=== PATIENT | male | born 1960 | race American Indian/Alaskan Native ===

== ENCOUNTER 2016-07-25 19:11 | Emergency (ER) | payer MEDICAID ==
[2016-07-25] MEDS ORDERED: TYLENOL PO ONE (19:33)
[2016-07-26] MEDS ORDERED: TORADOL ONE (00:58)
[2016-07-26] MEDS ORDERED: TORADOL IM ONE (00:59)
--- NOTE | 2016-07-26 02:08 | Emergency Department Report ---
Chief Complaint: Fall Stated Complaint: FALL Time Seen by Provider: 07/26/16 01:32 - HPI History of Present Illness: 55-year-old male presents today with dizziness and floaters every time he stands up from a sitting position causing him to fall and lose consciousness. Patient states this has been going on for 3-4 weeks. Denies head injury. Complaining of right hip pain post fall yesterday. Denies fever, chills, nausea , vomiting, chest pain, shortness of breath, abdominal pain. - ROS Review of Systems: Per HPI - Exam Vital Signs: Vital Signs 07/25/16 07/26/16 19:26 00:27 Temperature 98.5 F 98.4 F Pulse Rate 86 82 Respiratory 18 18 Rate Blood Pressure 106/60 Blood Pressure 100/60 [Right] O2 Sat by Pulse 97 96 Oximetry Physical Exam: General: A 55-year-old male in no acute distress. Well-developed, well- nourished. CV: Regular rate and rhythm. Lungs: Clear to auscultation bilaterally. MSE screening note: Focused history and physical exam performed. Due to findings the following was ordered: ED Disposition for MSE Condition: Stable
[2016-07-26 02:31] LABS: Eosinophils % (Auto) 1.8 % (0.0-4.3); Hematocrit 28.2 % (35.5-45.6); Hemoglobin 9.8 gm/dl (11.8-15.2); Mean Corpuscular HGB Conc 35 % (32-34); Mean Corpuscular Hemoglobin 28 pg (28-32); Mean Corpuscular Volume 82 fl (84-94); Platelet Count 387 K/mm3 (140-440); Red Blood Count 3.46 M/mm3 (3.65-5.03); Red Cell Distribution Width 13.5 % (13.2-15.2); White Blood Count 7.8 K/mm3 (4.5-11.0)
[2016-07-26 02:42] LABS: Urine Drugs of Abuse Note Disclamer
[2016-07-26 02:49] LABS: BUN/Creatinine Ratio 10.83; Blood Urea Nitrogen 13 mg/dL (9-20); Calcium 8.4 mg/dL (8.4-10.2); Carbon Dioxide 25 mmol/L (22-30); Chloride 95.6 mmol/L (98-107); Glucose 102 mg/dL (75-100); Potassium 3.9 mmol/L (3.6-5.0); Sodium 130 mmol/L (137-145)
[2016-07-26 02:49] LABS: Bilirubin,Urine NEG (Negative); Blood,Urine SM (Negative); Ketones,Urine NEG (Negative); Leukocyte Esterase,Urine NEG (Negative); Mucus,Urine FEW /HPF; Nitrite,Urine NEG (Negative); Protein,Urine <15 mg/dL mg/dL (Negative); Urobilinogen,Urine < 2.0 mg/dL (<2.0)
[2016-07-26 02:53] LABS: Anion Gap 13 mmol/L
[2016-07-26] MEDS ORDERED: ZOFRAN IV ONE (03:06)
[2016-07-26] MEDS ORDERED: NORCO 5/325 PO ONE (03:06)
[2016-07-26] MEDS ORDERED: NACL 0.9% 1000 ML 1,000 ML IV ONE (03:06)
--- NOTE | 2016-07-26 03:55 | Cat Scan Report ---
FINAL REPORT EXAM: CT HEAD/BRAIN WO CON HISTORY: LIGHTHEADED, SYNCOPE TECHNIQUE: CT scan of the brain without IV contrast. PRIORS: None FINDINGS: Mild patchy areas of low density in the periventricular and subcortical white matter are nonspecific, but may relate to chronic small vessel ischemic change. Brain volume is normal for age. No hemorrhage, mass, mass effect, or midline shift. Normal basal cisterns. No pathologic extra-axial fluid collection. No evidence of acute infarct. No skull fracture. There is a 6 x 8.5 mm lucency in the right petrous apex, nonspecific, but can be seen in a cholesterol granuloma. IMPRESSION: 1. No acute intracranial finding. Suspect chronic ischemic changes. 2. Lucency in the right petrous apex is nonspecific, but can be seen in cholesterol granuloma. Recommend comparison to prior studies to document stability. If no prior studies are available, recommend follow-up MRI temporal bones with gadolinium.
--- NOTE | 2016-07-26 04:20 | Emergency Department Report ---
ED Dizziness HPI - General Chief Complaint: Fall Stated Complaint: FALL Time Seen by Provider: 07/26/16 01:32 Source: patient, old records reviewed Mode of arrival: Wheelchair Limitations: No Limitations - History of Present Illness Initial Comments: 55-year-old male with a past rectal history of HIV, schizophrenia, hypertension , COPD, and chronic lower back pain presents to the hospital complaining of dizziness and syncopal episodes. Patient states last several weeks he is pitting lightheadedness and seeing spots with standing and ambulation. Yesterday patient fell striking his right hip and complains of aching 10/10 right hip pain with palpation and movement. Patient states intermittent syncopal episodes as well. Denies headache, neck pain, chest pain, shortness of breath, nausea, vomiting, diarrhea, melena, or hematochezia. States he is eating and drinking appropriate. He does not recall his last CD4 count is not currently on medications. patient states he has a chronic cough Previous medical records reviewed. 08/06/2015 CD4 count 117. Patient is a history of noncompliance as per medical record. - Related Data Home Medications Medication Instructions Recorded Confirmed Last Taken Benztropine [Cogentin] 0.5 mg PO BID 06/17/16 06/17/16 06/17/16 Haloperidol [Haldol] 5 mg PO BID 06/17/16 06/17/16 06/17/16 Oxycodone HCl/Acetaminophen 1 each PO Q6HR PRN 06/17/16 06/17/16 06/17/16 [Percocet 10/325 mg] traZODone [Desyrel] 100 mg PO QHS 06/17/16 06/17/16 06/17/16 Previous Rx's Medication Instructions Recorded Last Taken Type Nicotine [Habitrol] 14 mg TD QDAY #30 patch 04/12/15 Unknown Rx HYDROcodone/APAP 5-325 [[place] 1 each PO Q6HR PRN #20 tablet 07/26/16 Unknown Rx 5/325] Ibuprofen [Motrin] 600 mg PO Q8H PRN #30 tablet 07/26/16 Unknown Rx Allergies Allergy/AdvReac Type Severity Reaction Status Date / Time No Known Allergies Allergy Verified 04/21/16 14:15 ED Review of Systems ROS: Stated complaint: FALL Other details as noted in HPI Comment: All other systems reviewed and negative Other: Constitutional: No fevers chills Eyes: No eye pain visual changes ENT: No ear pain or throat pain Neck: Denies pain Respiratory: Denies cough wheezing shortness of breath Cardiovascular: Denies chest pain, palpitations GI: Denies abdominal pain, nausea, vomiting, diarrhea : Denies dysuria, urinary frequency, or urgency Musculoskeletal: as per hpi Skin: Denies rash, lesions, erythema Neurologic: Denies headache, numbness, weakness Psychiatric: Denies suicidal ideation, hallucinations ED Past Medical Hx - Past Medical History Previous Medical History?: Yes Hx Hypertension: Yes Hx Congestive Heart Failure: No Hx Diabetes: No Hx Renal Disease: No Hx Psychiatric Treatment: Yes (OP and while incarcerated; SCHIZOPHRENIA) Hx Asthma: No Hx COPD: Yes Hx HIV: Yes Additional medical history: pancreatitis. Chronic low back pain - Surgical History Past Surgical History?: Yes Additional Surgical History: L arm surgery, Right arm surgery - Social History Smoking Status: Heavy Tobacco Smoker Substance Use Type: None - Medications Home Medications: Home Medications Medication Instructions Recorded Confirmed Last Taken Type Nicotine [Habitrol] 14 mg TD QDAY #30 patch 04/12/15 07/28/15 Unknown Rx Benztropine [Cogentin] 0.5 mg PO BID 06/17/16 06/17/16 06/17/16 History Haloperidol [Haldol] 5 mg PO BID 06/17/16 06/17/16 06/17/16 History Oxycodone HCl/Acetaminophen 1 each PO Q6HR PRN 06/17/16 06/17/16 06/17/16 History [Percocet 10/325 mg] traZODone [Desyrel] 100 mg PO QHS 06/17/16 06/17/16 06/17/16 History HYDROcodone/APAP 5-325 [[place] 1 each PO Q6HR PRN #20 tablet 07/26/16 Unknown Rx 5/325] Ibuprofen [Motrin] 600 mg PO Q8H PRN #30 tablet 07/26/16 Unknown Rx ED Physical Exam - General Limitations: No Limitations - Other Other exam information: General: No limitations, patient is alert in no acute distress Head exam: Atraumatic, normocephalic Eyes exam: Normal appearance, pupils equal reactive to light, extraocular movements intact ENT: Moist mucous membrane Neck exam: Normal inspection, full range of motion, no meningismus nontender Respiratory exam: Clear to auscultation bilateral, no wheezes, rales, crackles Cardiovascular: Normal rate and rhythm, normal heart sounds Abdomen: Soft, nondistended, and nontender, with normal bowel sounds, no rebound, or guarding Extremity: Full range of motion normal inspection no deformity, right lateral hip tenderness Back: Normal Inspection, full range of motion Neurologic: Alert, oriented x3, cranial nerves intact, no motor or sensory deficit, [id number] function intact Psychiatric: normal affect, normal mood Skin: Warm, dry, intact ED Course Vital Signs 07/25/16 07/26/16 07/26/16 19:26 00:27 05:22 Temperature 98.5 F 98.4 F Pulse Rate 86 82 74 Respiratory 18 18 20 Rate Blood Pressure 106/60 Blood Pressure 100/60 93/67 [Right] O2 Sat by Pulse 97 96 97 Oximetry 07/26/16 05:41 Temperature Pulse Rate Respiratory Rate Blood Pressure Blood Pressure 90/63 [Right] O2 Sat by Pulse Oximetry - Reevaluation(s) Reevaluation #1: 07/26/16 04:26 Positive increased heart rate standing was stable systolic pressure. Normal saline given, [place], and Zofran ordered by ordered by me. Toradol Tylenol given prior to my evaluation 07/26/16 04:26 07/26/16 04:28 ED Medical Decision Making - Lab Data Result diagrams: 07/26/16 02:17 07/26/16 02:17 Lab Results 07/26/16 07/26/16 07/26/16 Range/Units 02:17 02:17 02:17 WBC 7.8 (4.5-11.0) K/mm3 RBC 3.46 L (3.65-5.03) M/mm3 Hgb 9.8 L (11.8-15.2) gm/dl Hct 28.2 L (35.5-45.6) % MCV 82 L (84-94) fl MCH 28 (28-32) pg MCHC 35 H (32-34) % RDW 13.5 (13.2-15.2) % Plt Count 387 (140-440) K/mm3 Lymph % (Auto) 38.5 H (13.4-35.0) % [place] % (Auto) 10.8 H (0.0-7.3) % Eos % (Auto) 1.8 (0.0-4.3) % Baso % (Auto) 1.0 (0.0-1.8) % Lymph # 3.0 (1.2-5.4) K/mm3 [place] # 0.8 (0.0-0.8) K/mm3 Eos # 0.1 (0.0-0.4) K/mm3 Baso # 0.1 (0.0-0.1) K/mm3 Seg Neutrophils % 47.9 (40.0-70.0) % Seg Neutrophils # 3.7 (1.8-7.7) K/mm3 Sodium 130 L (137-145) mmol/L Potassium 3.9 (3.6-5.0) mmol/L Chloride 95.6 L (98-107) mmol/L Carbon Dioxide 25 (22-30) mmol/L Anion Gap 13 mmol/L BUN 13 (9-20) mg/dL Creatinine 1.2 (0.8-1.5) mg/dL Estimated GFR > 60 ml/min BUN/Creatinine Ratio 10.83 % Glucose 102 H (75-100) mg/dL Calcium 8.4 (8.4-10.2) mg/dL Magnesium 1.8 (1.7-2.3) mg/dL Troponin T < 0.010 (0.00-0.029) ng/mL Urine Color (Yellow) Urine Turbidity (Clear) Urine pH (5.0-7.0) Ur Specific [place] (1.003-1.030) Urine Protein (Negative) mg/dL Urine Glucose (UA) (Negative) mg/dL Urine Ketones (Negative) mg/dL Urine Blood (Negative) Urine Nitrite (Negative) Urine Bilirubin (Negative) Urine Urobilinogen (<2.0) mg/dL Ur Leukocyte Esterase (Negative) Urine WBC (Auto) (0.0-6.0) /HPF Urine RBC (Auto) (0.0-6.0) /HPF Amorphous Crystals Urine Mucus /HPF Urine Opiates Screen Urine Methadone Screen Ur Barbiturates Screen Ur Phencyclidine Scrn Ur Amphetamines Screen U Benzodiazepines Scrn Urine Cocaine Screen U Marijuana (THC) Screen Drugs of Abuse Note 07/26/16 07/26/16 Range/Units 02:36 02:36 WBC (4.5-11.0) K/mm3 RBC (3.65-5.03) M/mm3 Hgb (11.8-15.2) gm/dl Hct (35.5-45.6) % MCV (84-94) fl MCH (28-32) pg MCHC (32-34) % RDW (13.2-15.2) % Plt Count (140-440) K/mm3 Lymph % (Auto) (13.4-35.0) % [place] % (Auto) (0.0-7.3) % Eos % (Auto) (0.0-4.3) % Baso % (Auto) (0.0-1.8) % Lymph # (1.2-5.4) K/mm3 [place] # (0.0-0.8) K/mm3 Eos # (0.0-0.4) K/mm3 Baso # (0.0-0.1) K/mm3 Seg Neutrophils % (40.0-70.0) % Seg Neutrophils # (1.8-7.7) K/mm3 Sodium (137-145) mmol/L Potassium (3.6-5.0) mmol/L Chloride (98-107) mmol/L Carbon Dioxide (22-30) mmol/L Anion Gap mmol/L BUN (9-20) mg/dL Creatinine (0.8-1.5) mg/dL Estimated GFR ml/min BUN/Creatinine Ratio % Glucose (75-100) mg/dL Calcium (8.4-10.2) mg/dL Magnesium (1.7-2.3) mg/dL Troponin T (0.00-0.029) ng/mL Urine Color Yellow (Yellow) Urine Turbidity Clear (Clear) Urine pH 6.0 (5.0-7.0) Ur Specific [place] 1.009 (1.003-1.030) Urine Protein <15 mg/dl (Negative) mg/dL Urine Glucose (UA) Neg (Negative) mg/dL Urine Ketones Neg (Negative) mg/dL Urine Blood Sm (Negative) Urine Nitrite Neg (Negative) Urine Bilirubin Neg (Negative) Urine Urobilinogen < 2.0 (<2.0) mg/dL Ur Leukocyte Esterase Neg (Negative) Urine WBC (Auto) 4.0 (0.0-6.0) /HPF Urine RBC (Auto) 1.0 (0.0-6.0) /HPF Amorphous Crystals Few Urine Mucus Few /HPF Urine Opiates Screen Presumptive negative Urine Methadone Screen Presumptive negative Ur Barbiturates Screen Presumptive negative Ur Phencyclidine Scrn Presumptive negative Ur Amphetamines Screen Presumptive negative U Benzodiazepines Scrn Presumptive negative Urine Cocaine Screen Presumptive negative U Marijuana (THC) Screen Presumptive negative Drugs of Abuse Note Disclamer - EKG Data -: EKG Interpreted by Me (sinus rhythm [address]-T wave abnormalities) - EKG Data When compared to previous EKG there are: no significant change (04/21/2016) - Radiology Data Radiology results: report reviewed, image reviewed (chest x-ray PA and lateral right lower lobe infiltrate suspect this is chronic based on previous x-rays. Patient admitted for pneumonia JR 2015 right lower quadrant thought to be chronic as per infectious disease at that time.) interpreted by me: r hip xray/pelvis: naf CT head noncontrast: No acute intracranial finding. Suspect chronic ischemic changes. Lucency in the right petrous apex is nonspecific but can be seen in cholesterol granuloma. - Medical Decision Making No acute abnormality or infection identified. Suspect the patient's right lower lobe infiltrate is chronic given previous chest x-ray findings. CT head findings can be followed up as an outpatient. Patient has a history of noncompliance and last CD4 was less than 500 one year ago. Will be given outpatient referral with rashes disease doctor for further workup and evaluation. Patient reports feeling better with ED treatment - Differential Diagnosis dehydration, CVA, anemia, arrhythmia Critical Care Time: No Critical care attestation.: If time is entered above; I have spent that time in minutes in the direct care of this critically ill patient, excluding procedure time. ED Disposition Clinical Impression: Schizophrenia, Lightheaded, Chronic anemia Fall Qualifiers: Encounter type: initial encounter Qualified Code(s): W19.XXXA - Unspecified fall, initial encounter Syncope Qualifiers: Syncope type: unspecified Qualified Code(s): R55 - Syncope and collapse Contusion of right hip Qualifiers: Encounter type: initial encounter Qualified Code(s): S70.01XA - Contusion of right hip, initial encounter Disposition: DISCHARGED TO HOME OR SELFCARE Is pt being admited?: No Does the pt Need Aspirin: No Condition: Stable Instructions: Syncope (ED), Human Immunodeficiency Virus Transmission (ED), Hip Sprain (ED) Additional Instructions: Follow with your primary care doctor, the infectious disease doctor, and a train director doctor provided for further workup and evaluation. You will also need an outpatient MRI for further evaluation of your right petrous apex bone which could be a cholesterol granuloma. Take the medication as prescribed. Use caution when standing up and changing positions. Return if symptoms worsen Prescriptions: HYDROcodone/APAP 5-325 [[place] 5/325] 1 each PO Q6HR PRN #20 tablet PRN Reason: Pain Ibuprofen [Motrin] 600 mg PO Q8H PRN #30 tablet PRN Reason: Pain Referrals: PRIMARY CARE, [Primary Care Provider] - 3-5 Days JOSE ANGEL SOLIZ MD [Staff Physician] - 3-5 Days MEDINA ENCISO MD [Staff Physician] - 3-5 Days Time of Disposition: 05:56
[2016-07-26 06:00] VITALS: BP 99/63
--- NOTE | 2016-07-27 11:10 | XRay Report ---
RIGHT HIP, 2 views: History: Right hip pain. The bony architecture is intact without evidence of fracture or dislocation. No significant soft tissue abnormality is seen. IMPRESSION: Normal right hip.
--- NOTE | 2016-07-27 11:12 | XRay Report ---
ROUTINE CHEST, TWO VIEWS: HISTORY: Cough. The lungs are hyperinflated suggesting emphysematous changes. Infiltrate or atelectasis appears to obscure the lower lobes on the lateral image. This may be within the left lower lobe. I cannot entirely exclude pneumonia. No pleural effusion or pneumothorax. Normal heart size. IMPRESSION: Emphysematous changes. Questionable left lower lobe opacity, correlate for pneumonia.
== END 2016-07-26 06:03 | disposition home or self-care (01) ==
LOC: ED 19:11
DX: S70.01XA Contusion of right hip, initial encounter (principal); R42 Dizziness and giddiness; F20.9 Schizophrenia, unspecified; D64.89 Other specified anemias; W19.XXXA Unspecified fall, initial encounter; Y93.89 Activity, other specified; Y92.89 Other specified places as the place of occurrence of the external cause; Y99.8 Other external cause status; I10 Essential (primary) hypertension; J44.9 Chronic obstructive pulmonary disease, unspecified; Z21 Asymptomatic human immunodeficiency virus [HIV] infection status; G89.29 Other chronic pain; K85.90 Acute pancreatitis without necrosis or infection, unspecified; F17.200 Nicotine dependence, unspecified, uncomplicated
CPT/HCPCS: 36415; 70450; 71020; 73502; 80048; 81001; 83735; 84484; 85025; 93005; 93010; 96361; 96372; 96374; 99285; G0479; J1885; J2405; J7030; 80307

== ENCOUNTER 2016-09-15 15:20 | Emergency (ER) | payer MEDICAID ==
[2016-09-15 15:55] VITALS: BP 103/72
== END 2016-09-15 21:42 | disposition left against medical advice (07) ==
LOC: ED 15:20
DX: K13.70 Unspecified lesions of oral mucosa (principal); Z53.21 Procedure and treatment not carried out due to patient leaving prior to being seen by health care provider

== ENCOUNTER 2016-12-25 18:27 | Emergency (ER) | payer MEDICAID ==
[2016-12-25 19:41] LABS: Basophils % (Auto) 0.6 % (0.0-1.8); Eosinophils % (Auto) 0.4 % (0.0-4.3); Hemoglobin 11.2 gm/dl (11.8-15.2); Mean Corpuscular HGB Conc 34 % (32-34); Mean Corpuscular Hemoglobin 27 pg (28-32); Mean Corpuscular Volume 81 fl (84-94); Platelet Count 264 K/mm3 (140-440); Red Blood Count 4.07 M/mm3 (3.65-5.03); White Blood Count 12.2 K/mm3 (4.5-11.0)
[2016-12-25 19:53] LABS: Anion Gap 20 mmol/L; Blood Urea Nitrogen 15 mg/dL (9-20); Calcium 8.9 mg/dL (8.4-10.2); Carbon Dioxide 21 mmol/L (22-30); Chloride 97.5 mmol/L (98-107); Glucose 77 mg/dL (75-100); Potassium 4.5 mmol/L (3.6-5.0); Sodium 134 mmol/L (137-145)
[2016-12-25 20:44] LABS: Urine Drugs of Abuse Note Disclamer
[2016-12-25 21:11] LABS: Bacteria,Urine 1+ /HPF (Negative); Bilirubin,Urine NEG (Negative); Blood,Urine MOD (Negative); Ketones,Urine NEG (Negative); Leukocyte Esterase,Urine LG (Negative); Nitrite,Urine NEG (Negative); Urobilinogen,Urine < 2.0 mg/dL (<2.0)
[2016-12-25 21:14] LABS: WBC,Urine > 182.0 /HPF (0.0-6.0)
[2016-12-25] MEDS ORDERED: TYLENOL PO ONE (21:50)
[2016-12-25] MEDS ORDERED: TYLENOL ONE (21:51)
[2016-12-26] MEDS ORDERED: MACROBID PO ONE (02:24)
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
[2016-12-26] MEDS ORDERED: MOTRIN PO ONE (04:18)
[2016-12-26] MEDS ORDERED: MOTRIN ONE (04:18)
[2016-12-26] MEDS ORDERED: COGENTIN PO SCH (10:00)
[2016-12-26 11:49] VITALS: BP 106/64
--- NOTE | 2016-12-26 14:07 | Consultation ---
History of Present Illness - Reason for Consult Consult date: 12/26/16 Reason for consult: Mental Health Evaluation Requesting physician: SUMAN GOODWIN - Chief Complaint Chief complaint: "I just want get back on my medications" - History of Present Psychiatric Illness This is a 56-year-old Afro-Mexican male presents to the emergency department with complaint of some depression and suicidal ideation. Today patient is calm, cooperative, and disorganized during the assessment. He stated that he lost his psy medications while moving from one place to another. He stated that he resides in a transitional home. He stated that he have not taking his medications for the past week and now feel suicidal because of voices telling him to jump off a bridge. Patient stated that he have attempted suicide in the past. He stated when he take his medications, he can tune out the voices. Per the ER note, patient could not confirm that he got into an argument with another person and felt depressed. He is adamant about getting back on his medications so he can feel better "mentally." During the conversation patient would look away and put his hands on his head, possibly responding to some type of stimuli. He denies HI's, VH's, and a poor appetite. Patient stated that his sleep has been erratic since he have not taking his psy meds. He denies recreational drug use and alcohol consumption (etoh). He denies feelings sad or hopeless. Medications and Allergies Allergies Allergy/AdvReac Type Severity Reaction Status Date / Time No Known Allergies Allergy Verified 04/21/16 14:15 Home Medications Medication Instructions Recorded Confirmed Last Taken Type Haloperidol [Haldol] 10 mg PO QHS 06/17/16 12/12/16 06/17/16 History Ibuprofen [Motrin] 600 mg PO Q8H PRN #30 tablet 07/26/16 12/12/16 Unknown Rx Doxycycline [Vibramycin] 100 mg PO Q12HR 12/12/16 12/12/16 Unknown History Gabapentin [Neurontin] 300 mg PO BID 12/12/16 12/12/16 Unknown History Mirtazapine [Remeron] 45 mg PO QHS 12/12/16 12/12/16 Unknown History Trazodone HCl [Oleptro ER] 150 mg PO QHS 12/12/16 12/12/16 Unknown History Benztropine [Cogentin] 0.5 mg PO BID #60 tablet 12/13/16 Unknown Rx Tamsulosin [Flomax] 2 tab PO DAILY #60 capsule 12/13/16 Unknown Rx Nitrofurantoin Trigg/M-Cryst 100 mg PO BID #14 capsule 12/26/16 Unknown Rx [Macrobid CAP] Active Meds: Active Medications Benztropine Mesylate (Cogentin) 0.5 mg PO BID [facility] Last Admin: 12/26/16 11:41 Dose: 0.5 mg Mirtazapine (Remeron) 45 mg PO QHS [facility] Past psychiatric history - Past Medical History Past Medical History: COPD, HIV/AIDS, hypertension Past Surgical History: No surgical history - past Psychiatric treatment and history Psych: Schizophrenia psychiatric treatment history: Multiple inpatient setting. He denies a fam psy hx. - Social History Social history: other (GED, Reside in a transitional home) Mental Status Exam - Vital signs Last Vital Signs Temp 98.6 F 12/26/16 11:48 Pulse 82 12/26/16 11:48 Resp 16 12/26/16 13:31 BP 106/64 12/26/16 11:48 Pulse Ox 96 12/26/16 13:31 - Exam Narrative exam: ROS: (+) disorganized MSE: Appearance: calm, cooperative, disorganized Behavior: good eye contact Speech: regular rate and tone Mood: fidgety Affect: congruent to mood Thought Process: circumstantial Thought Content: denies HI's and VH's Motor Activity: lying in bed Cognition: a/ox 3 Insight: limited Judgment: limited Results Result Diagrams: 12/25/16 19:24 12/25/16 19:24 Abnormal lab results 12/25/16 12/25/16 12/25/16 Range/Units 19:24 19:24 20:39 WBC 12.2 H (4.5-11.0) K/mm3 Hgb 11.2 L (11.8-15.2) gm/dl Hct 33.0 L (35.5-45.6) % MCV 81 L (84-94) fl MCH 27 L (28-32) pg Trigg % (Auto) 11.1 H (0.0-7.3) % Trigg # 1.4 H (0.0-0.8) K/mm3 Sodium 134 L (137-145) mmol/L Chloride 97.5 L (98-107) mmol/L Carbon Dioxide 21 L (22-30) mmol/L Urine WBC (Auto) > 182.0 H (0.0-6.0) /HPF All other labs normal. Assessment and Plan Assessment and plan: Impression: Hx of Schizophrenia. Today patient is calm, cooperative, and disorganized during the assessment. He stated that he lost his psy medications while moving from one place to another. He stated that he resides in a transitional home. He stated that he have not taking his medications for the past week and now feel suicidal because of voices telling him to jump off a bridge. He denies HI's and VH's. DD: Schizoaffective DO Recommendation/Plan: Continue 1013 with possible placement to inpatient psy services. Start Haldol 10 mg PO HS for Schizophrenia and Cogentin 1 mg PO HS for EPS prevention.
[2016-12-26] MEDS ORDERED: NON-FORMULARY (Mirtazapine [Remeron] 45 MG) PO SCH (22:00)
[2016-12-26] MEDS ORDERED: REMERON PO SCH (22:00)
== END 2016-12-26 15:02 ==
LOC: EEVIPCON 18:27 → ED 18:27
DX: F20.9 Schizophrenia, unspecified (principal); N30.00 Acute cystitis without hematuria; I10 Essential (primary) hypertension; J44.9 Chronic obstructive pulmonary disease, unspecified; G89.29 Other chronic pain; F17.200 Nicotine dependence, unspecified, uncomplicated
CPT/HCPCS: 36415; 80048; 80307; 81001; 85025; 99285; G0480; 80320

== ENCOUNTER 2017-02-28 04:13 | Emergency (ER) | payer MEDICAID ==
[2017-02-28 04:45] VITALS: BP 108/76
[2017-02-28 04:53] LABS: Hemoglobin 11.7 gm/dl (11.8-15.2); Mean Corpuscular HGB Conc 34 % (32-34); Mean Corpuscular Hemoglobin 29 pg (28-32); Mean Corpuscular Volume 84 fl (84-94); Platelet Count 271 K/mm3 (140-440); Red Blood Count 4.05 M/mm3 (3.65-5.03); Red Cell Distribution Width 16.8 % (13.2-15.2); White Blood Count 6.1 K/mm3 (4.5-11.0)
[2017-02-28 05:04] LABS: Alanine Aminotransferase 18 units/L (7-56); Albumin 3.6 g/dL (3.9-5); Albumin/Globulin Ratio 0.5 %; Alkaline Phosphatase 117 units/L (35-129); Anion Gap 13 mmol/L; Blood Urea Nitrogen 8 mg/dL (9-20); Calcium 8.8 mg/dL (8.4-10.2); Carbon Dioxide 25 mmol/L (22-30); Chloride 98.5 mmol/L (98-107); Glucose 80 mg/dL (75-100); Lipase 70 units/L (13-60); Potassium 3.8 mmol/L (3.6-5.0); Sodium 133 mmol/L (137-145); Total Protein 11.1 g/dL (6.3-8.2)
[2017-02-28 06:20] LABS: Bilirubin,Urine NEG (Negative); Blood,Urine SM (Negative); Ketones,Urine NEG (Negative); Leukocyte Esterase,Urine NEG (Negative); Mucus,Urine FEW /HPF; Nitrite,Urine NEG (Negative); Protein,Urine <15 mg/dL mg/dL (Negative); WBC,Urine < 1.0 /HPF (0.0-6.0)
[2017-02-28 08:27] LABS: Anisocytosis RARE; Basophils % (Manual) 0 % (0.0-1.8); Blastocytes % (Manual) 0 %; Diff Status Complete; Large Platelets Rare; Platelet Estimate Appe
== END 2017-02-28 07:00 | disposition left against medical advice (07) ==
LOC: ED 04:13
DX: R10.9 Unspecified abdominal pain (principal); Z53.21 Procedure and treatment not carried out due to patient leaving prior to being seen by health care provider
CPT/HCPCS: 36415; 80053; 81001; 83690; 85007; 85025

== ENCOUNTER 2017-07-20 06:37 | Emergency (ER) | payer MEDICAID ==
--- NOTE | 2017-07-20 10:20 | Emergency Department Report ---
Chief Complaint: Pain General Stated Complaint: MOUTH PAIN - HPI History of Present Illness: HERE IN NAD NEEDS MED REFILL STATES HE HAS BLISTERS ON HIS FEET NO SOB OR CP - Exam Vital Signs: Vital Signs 07/20/17 07:19 Temperature 97.7 F Pulse Rate 87 Respiratory 18 Rate Blood Pressure 100/72 O2 Sat by Pulse 97 Oximetry MSE screening note: Focused history and physical exam performed. Due to findings the following was ordered: ED Disposition for MSE Condition: Stable Referrals: PRIMARY CARE, [Primary Care Provider] - 3-5 Days
[2017-07-20] MEDS ORDERED: ATROVENT IH ONE (21:57)
[2017-07-20] MEDS ORDERED: PROVENTIL IH ONE (21:57)
--- NOTE | 2017-07-20 22:04 | Emergency Department Report ---
ED ENT HPI - General Chief complaint: Pain General Stated complaint: MOUTH PAIN Time Seen by Provider: 07/20/17 21:07 Source: patient Mode of arrival: Ambulatory Limitations: Other - History of Present Illness Initial comments: 56YO 56 YO MALE WITH C/O THROAT PAIN AND BILATERAL TOE PAIN . THE THROAT PAIN IS PREVENTING HIM FROM EATING AND HE IS HAVING DIFFICULTY WALKING BECAUSE OF THE TOE ISSUES MD complaint: sore throat, other (SORE TONGUE) -: Gradual Severity: severe Quality: burning, aching, constant Consistency: constant Improves with: none Worsens with: swallowing Context- Dental: history of dental caries Associated Symptoms: cough, pain with swallowing, sore throat - Related Data Home Medications Medication Instructions Recorded Confirmed Last Taken Haloperidol [Haldol] 10 mg PO QHS 06/17/16 12/12/16 06/17/16 Gabapentin [Neurontin] 300 mg PO BID 12/12/16 12/12/16 Unknown Mirtazapine [Remeron] 45 mg PO QHS 12/12/16 12/12/16 Unknown Trazodone HCl [Oleptro ER] 150 mg PO QHS 12/12/16 12/12/16 Unknown Previous Rx's Medication Instructions Recorded Last Taken Type Ibuprofen [Motrin 600 MG tab] 600 mg PO Q8H PRN #30 tablet 07/26/16 Unknown Rx Benztropine [Cogentin] 0.5 mg PO BID #60 tablet 12/13/16 Unknown Rx Tamsulosin [Flomax] 2 tab PO DAILY #60 capsule 12/13/16 Unknown Rx Fluticasone [Flonase] 100 mcg NS QDAY #1 bottle 03/23/17 Unknown Rx Levofloxacin [Levaquin TAB] 500 mg PO QDAY #7 tablet 03/23/17 Unknown Rx Loratadine [Claritin] 10 mg PO QDAY #10 tablet 03/23/17 Unknown Rx Nicotine [Habitrol] 14 mg TD QDAY #30 patch 03/23/17 Unknown Rx Clotrimazole [Athlete's Foot] 60 gm TP BID #1 cream..g. 07/21/17 Unknown Rx Fluconazole [Diflucan] 400 mg PO DAILY #14 tablet 07/21/17 Unknown Rx Allergies Allergy/AdvReac Type Severity Reaction Status Date / Time No Known Allergies Allergy Verified 07/20/17 07:19 ED Dental HPI - General Chief complaint: Pain General Stated complaint: MOUTH PAIN Time Seen by Provider: 07/20/17 21:07 Source: patient Mode of arrival: Ambulatory Limitations: Other - Related Data Home Medications Medication Instructions Recorded Confirmed Last Taken Haloperidol [Haldol] 10 mg PO QHS 06/17/16 12/12/16 06/17/16 Gabapentin [Neurontin] 300 mg PO BID 12/12/16 12/12/16 Unknown Mirtazapine [Remeron] 45 mg PO QHS 12/12/16 12/12/16 Unknown Trazodone HCl [Oleptro ER] 150 mg PO QHS 12/12/16 12/12/16 Unknown Previous Rx's Medication Instructions Recorded Last Taken Type Ibuprofen [Motrin 600 MG tab] 600 mg PO Q8H PRN #30 tablet 07/26/16 Unknown Rx Benztropine [Cogentin] 0.5 mg PO BID #60 tablet 12/13/16 Unknown Rx Tamsulosin [Flomax] 2 tab PO DAILY #60 capsule 12/13/16 Unknown Rx Fluticasone [Flonase] 100 mcg NS QDAY #1 bottle 03/23/17 Unknown Rx Levofloxacin [Levaquin TAB] 500 mg PO QDAY #7 tablet 03/23/17 Unknown Rx Loratadine [Claritin] 10 mg PO QDAY #10 tablet 03/23/17 Unknown Rx Nicotine [Habitrol] 14 mg TD QDAY #30 patch 03/23/17 Unknown Rx Clotrimazole [Athlete's Foot] 60 gm TP BID #1 cream..g. 07/21/17 Unknown Rx Fluconazole [Diflucan] 400 mg PO DAILY #14 tablet 07/21/17 Unknown Rx Allergies Allergy/AdvReac Type Severity Reaction Status Date / Time No Known Allergies Allergy Verified 07/20/17 07:19 ED Review of Systems ROS: Stated complaint: MOUTH PAIN Other details as noted in HPI Constitutional: denies: chills, fever Eyes: denies: eye pain, eye discharge, vision change ENT: throat pain. denies: ear pain Respiratory: cough. denies: shortness of breath Cardiovascular: denies: chest pain, palpitations Endocrine: no symptoms reported Gastrointestinal: denies: abdominal pain, nausea, diarrhea Genitourinary: denies: urgency, dysuria Musculoskeletal: joint swelling (TOES BILATERAL), arthralgia. denies: back pain Skin: denies: rash, lesions Neurological: denies: headache, weakness, paresthesias Psychiatric: denies: anxiety, depression Hematological/Lymphatic: denies: easy bleeding, easy bruising ED Past Medical Hx - Past Medical History Hx Hypertension: Yes Hx Congestive Heart Failure: No Hx Diabetes: No Hx Renal Disease: No Hx Psychiatric Treatment: (OP and while incarcerated; SCHIZOPHRENIA) Hx Asthma: No Hx COPD: Yes Hx HIV: Yes Additional medical history: pancreatitis. Chronic low back pain, PNEUMONIA - Surgical History Past Surgical History?: Yes Additional Surgical History: L arm surgery, Right arm surgery - Family History Family history: hypertension - Social History Smoking Status: Current Every Day Smoker Substance Use Type: None - Medications Home Medications: Home Medications Medication Instructions Recorded Confirmed Last Taken Type Haloperidol [Haldol] 10 mg PO QHS 06/17/16 12/12/16 06/17/16 History Ibuprofen [Motrin 600 MG tab] 600 mg PO Q8H PRN #30 tablet 07/26/16 12/12/16 Unknown Rx Gabapentin [Neurontin] 300 mg PO BID 12/12/16 12/12/16 Unknown History Mirtazapine [Remeron] 45 mg PO QHS 12/12/16 12/12/16 Unknown History Trazodone HCl [Oleptro ER] 150 mg PO QHS 12/12/16 12/12/16 Unknown History Benztropine [Cogentin] 0.5 mg PO BID #60 tablet 12/13/16 Unknown Rx Tamsulosin [Flomax] 2 tab PO DAILY #60 capsule 12/13/16 Unknown Rx Fluticasone [Flonase] 100 mcg NS QDAY #1 bottle 03/23/17 Unknown Rx Levofloxacin [Levaquin TAB] 500 mg PO QDAY #7 tablet 03/23/17 Unknown Rx Loratadine [Claritin] 10 mg PO QDAY #10 tablet 03/23/17 Unknown Rx Nicotine [Habitrol] 14 mg TD QDAY #30 patch 03/23/17 Unknown Rx Clotrimazole [Athlete's Foot] 60 gm TP BID #1 cream..g. 07/21/17 Unknown Rx Fluconazole [Diflucan] 400 mg PO DAILY #14 tablet 07/21/17 Unknown Rx ED Physical Exam - General Limitations: Other General appearance: alert, in distress - Head Head exam: Present: atraumatic, normocephalic - Eye Eye exam: Present: normal appearance, EOMI - ENT ENT exam: Present: mucous membranes moist, other (POOR DENTITION, MULTIPLE MISSING TEETH) - Neck Neck exam: Present: normal inspection, full ROM - Respiratory Respiratory exam: Present: normal lung sounds bilaterally, wheezes, rhonchi. Absent: respiratory distress, rales - Cardiovascular Cardiovascular Exam: Present: regular rate, normal rhythm. Absent: systolic murmur, diastolic murmur, rubs, gallop - GI/Abdominal GI/Abdominal exam: Present: soft, normal bowel sounds. Absent: distended, tenderness, guarding - Rectal Rectal exam: Present: deferred - Extremities Exam Extremities exam: Present: normal inspection, full ROM, tenderness (UNDER EACH TOE IS FUNGAL INFECTION BILATERAL), joint swelling - Back Exam Back exam: Present: normal inspection - Neurological Exam Neurological exam: Present: alert, oriented X3 - Psychiatric Psychiatric exam: Present: normal affect, normal mood - Skin Skin exam: Present: warm, dry, intact, normal color. Absent: rash ED Course Vital Signs 07/20/17 07/20/17 07/20/17 07:19 19:36 19:37 Temperature 97.7 F 98 F Pulse Rate 87 82 Respiratory 18 18 18 Rate Blood Pressure 100/72 Blood Pressure 110/76 [Left] O2 Sat by Pulse 97 96 Oximetry 07/20/17 22:25 Temperature Pulse Rate 74 Respiratory 18 Rate Blood Pressure Blood Pressure 114/74 [Left] O2 Sat by Pulse 98 Oximetry ED Medical Decision Making - Lab Data Result diagrams: 07/20/17 22:45 07/20/17 22:45 Critical care attestation.: If time is entered above; I have spent that time in minutes in the direct care of this critically ill patient, excluding procedure time. 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 RETURN TO THE EMERGENCY DEPARTMENT FOR ANY REASON. PLEASE TAKE YOUR HIV MEDICATION. YOU HAVE THE INFECTION IN YOUR MOUTH AND TOES BECAUSE OF HIV GETTING WORSE. Prescriptions: Clotrimazole [Athlete's Foot] 60 gm TP BID #1 cream..g. Fluconazole [Diflucan] 400 mg PO DAILY #14 tablet Referrals: PRIMARY CARE, [Primary Care Provider] - 3-5 Days Time of Disposition: 01:33
[2017-07-20 22:27] VITALS: BP 114/74
--- NOTE | 2017-07-20 22:54 | XRay Report ---
FINAL REPORT PROCEDURE: XR CHEST ROUTINE 2V TECHNIQUE: PA and lateral chest radiographs were obtained. CPT 20374 HISTORY: COUGH,HIV COMPARISON: March 20, 2017 FINDINGS: Heart: Normal. Mediastinum/Vessels: Normal. Lungs/Pleural space: Lungs are hyperexpanded. There is interstitial accentuation. Left lower lung airspace infiltrate. Bony thorax: Dextroscoliosis. Other: IMPRESSION: Left lower lung infiltrate.
[2017-07-20] MEDS ORDERED: FLUCONAZOLE IV SCH (23:00)
[2017-07-20] MEDS ORDERED: SODIUM CHLORIDE IV SCH (23:00)
[2017-07-20] MEDS ORDERED: DIFLUCAN 200 MG/100 ML BAG IV SCH ×2 (23:00)
[2017-07-20 23:36] LABS: Alanine Aminotransferase 17 units/L (7-56); BUN/Creatinine Ratio 10; Blood Urea Nitrogen 8 mg/dL (9-20); Calcium 8.5 mg/dL (8.4-10.2); Hemolysis Index 13
[2017-07-20 23:40] LABS: Hematocrit 32.9 % (35.5-45.6); Hemoglobin 11.1 gm/dl (11.8-15.2); Mean Corpuscular HGB Conc 34 % (32-34); Mean Corpuscular Hemoglobin 29 pg (28-32); Mean Corpuscular Volume 84 fl (84-94); Platelet Count 332 K/mm3 (140-440); Red Blood Count 3.91 M/mm3 (3.65-5.03); Red Cell Distribution Width 15.5 % (13.2-15.2)
[2017-07-21] MEDS ORDERED: ALUM-MAG HYDROX-SIMETH 200-200-20MG/5ML PO ONE (00:25)
[2017-07-21] MEDS ORDERED: LIDOCAINE VISCOUS 2% PO ONE (00:25)
[2017-07-21 03:17] LABS: Basophils % (Manual) 0 % (0.0-1.8); Total Cells Counted 100
[2017-07-21 03:18] LABS: Anisocytosis 1+; Hypochromasia 1+; Rouleaux Rare; Target Cells Rare
[2017-07-21] MEDS ORDERED: FLUCONAZOLE 100 MG/50 ML IV SCH (10:00)
[2017-07-21] MEDS ORDERED: NACL 0.9% IV SCH (10:00)
[2017-07-21] MEDS ORDERED: DIFLUCAN IV SCH (10:00)
== END 2017-07-21 01:51 | disposition left against medical advice (07) ==
LOC: ED 06:37
DX: B37.81 Candidal esophagitis (principal); B35.3 Tinea pedis; B20 Human immunodeficiency virus [HIV] disease; I10 Essential (primary) hypertension; J44.9 Chronic obstructive pulmonary disease, unspecified; F17.200 Nicotine dependence, unspecified, uncomplicated
CPT/HCPCS: 36415; 71046; 80053; 85007; 85025; 96365; 99284; J1450

== ENCOUNTER 2017-09-29 11:30 | Emergency (ER) | payer MEDICAID ==
[2017-09-29 12:08] VITALS: BP 98/65
[2017-09-29] MEDS ORDERED: NACL 0.9% 1000 ML 1,000 ML IV ONE (12:08)
== END 2017-09-29 19:40 | disposition left against medical advice (07) ==
LOC: ED 11:30
DX: R11.10 Vomiting, unspecified (principal); Z53.21 Procedure and treatment not carried out due to patient leaving prior to being seen by health care provider
CPT/HCPCS: 93005; 93010

== ENCOUNTER 2017-10-01 05:24 | Emergency (ER) | payer MEDICAID | END 2017-10-01 08:01 | disposition left against medical advice (07) | LOC: ED 05:24 | DX: R10.9 Unspecified abdominal pain (principal); R11.2 Nausea with vomiting, unspecified; Z53.21 Procedure and treatment not carried out due to patient leaving prior to being seen by health care provider ==

== ENCOUNTER 2017-10-01 17:25 | Emergency (ER) | payer MEDICAID ==
[2017-10-01 17:53] LABS: Hematocrit 33.1 % (35.5-45.6); Hemoglobin 11.4 gm/dl (11.8-15.2); Mean Corpuscular HGB Conc 34 % (32-34); Mean Corpuscular Hemoglobin 29 pg (28-32); Mean Corpuscular Volume 84 fl (84-94); Platelet Count 293 K/mm3 (140-440); Red Blood Count 3.94 M/mm3 (3.65-5.03); Red Cell Distribution Width 17.3 % (13.2-15.2)
[2017-10-01 18:19] LABS: BUN/Creatinine Ratio 18; Blood Urea Nitrogen 18 mg/dL (9-20); Calcium 8.8 mg/dL (8.4-10.2); Hemolysis Index 4
[2017-10-01 18:39] LABS: Basophils % (Manual) 0 % (0.0-1.8); Total Cells Counted 100
[2017-10-01 18:40] LABS: Anisocytosis 1+; Platelet Estimate Consistent w Auto
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
[2017-10-01 21:53] LABS: Bilirubin,Urine NEG (Negative); Blood,Urine SM (Negative); Color,Urine Yellow (Yellow); Mucus,Urine FEW /HPF; Protein,Urine <15 mg/dL mg/dL (Negative)
[2017-10-01 22:34] LABS: Amphetamine Screen,Urine PRESUMPTIVE NEGATIVE; Benzodiazepines Screen,Urine PRESUMPTIVE NEGATIVE; Cannabinoid Screen,Urine PRESUMPTIVE NEGATIVE; Cocaine Screen,Urine PRESUMPTIVE NEGATIVE; Methadone Screen,Urine PRESUMPTIVE NEGATIVE; Opiate Screen,Urine PRESUMPTIVE NEGATIVE
--- NOTE | 2017-10-02 16:49 | Consultation ---
History of Present Illness - Reason for Consult Consult date: 10/02/17 Reason for consult: Mental Health Evaluation Requesting physician: SHAYNE GRAVES - Chief Complaint Chief complaint: "My voices are bothering me". - History of Present Psychiatric Illness 57-year-old male with history of schizophrenia presented to the emergency room complaining of worsening in depression and having suicidal thoughts. Patient reported that he is "stressed out" since he lost his medications. Patient was disorganized in his thought process did report worsening in his depression and being overwhelmed. Patient was perseverative about his medical problems including his hearing problems and vision problems. Patient did report that he has been having auditory hallucinations and "they are not bothering me". During the conversation he did appear the patient was responding to internal stimuli. He did present with poor grooming and hygiene. He reported that his sleep has been erratic. He did report that he has been compliant with her psychotropic medications which include risperidone and trazodone, but he was not sure about their doses and when he had last filled them. Medications and Allergies Allergies Allergy/AdvReac Type Severity Reaction Status Date / Time No Known Allergies Allergy Verified 08/04/17 16:19 Home Medications Medication Instructions Recorded Confirmed Last Taken Type Haloperidol [Haldol] 10 mg PO QHS 06/17/16 10/01/17 06/17/16 History Ibuprofen [Motrin 600 MG tab] 600 mg PO Q8H PRN #30 tablet 07/26/16 10/01/17 Unknown Rx Gabapentin [Neurontin] 300 mg PO BID 12/12/16 10/01/17 Unknown History Mirtazapine [Remeron] 45 mg PO QHS 12/12/16 10/01/17 Unknown History Trazodone HCl [Oleptro ER] 150 mg PO QHS 12/12/16 10/01/17 Unknown History Benztropine [Cogentin] 0.5 mg PO BID #60 tablet 12/13/16 10/01/17 Unknown Rx Tamsulosin [Flomax] 2 tab PO DAILY #60 capsule 12/13/16 10/01/17 Unknown Rx Levofloxacin [Levaquin TAB] 500 mg PO QDAY #7 tablet 03/23/17 10/01/17 Unknown Rx Loratadine [Claritin] 10 mg PO QDAY #10 tablet 03/23/17 10/01/17 Unknown Rx Nicotine [Habitrol] 14 mg TD QDAY #30 patch 03/23/17 10/01/17 Unknown Rx Chlorpheniramine/Phenylephrine 1 each PO BID #20 tablet 07/11/17 10/01/17 Unknown Rx [Ed-A-Hist 4 mg-10 mg Tablet] metroNIDAZOLE [Metronidazole] 500 mg PO ONCE #4 tablet 07/11/17 10/01/17 Unknown Rx Clotrimazole [Athlete's Foot] 60 gm TP BID #1 cream..g. 07/21/17 10/01/17 Unknown Rx Fluconazole [Diflucan] 400 mg PO DAILY #14 tablet 07/21/17 10/01/17 Unknown Rx Fluconazole [Diflucan] 200 mg PO DAILY #9 tablet 08/07/17 10/01/17 Unknown Rx Past psychiatric history - Past Medical History Past Medical History: COPD, HIV/AIDS - past Psychiatric treatment and history Psych: Psychosis, Schizophrenia - Social History Social history: Lives alone Mental Status Exam - Vital signs Last Vital Signs Temp 98.5 F 10/01/17 21:18 Pulse 92 H 10/01/17 21:18 Resp 16 10/01/17 21:18 BP 107/70 10/01/17 21:18 Pulse Ox 97 10/01/17 21:18 - Exam Orientation: time, place Affect: depressed, anxious Mood: hopeless, sad, anxious Thought Process: Loose Associations, Disorganized Perceptions: auditory, hallucinations Speech: rapid Concentration: distractible, unable to pay attention Motor activity: restless Level of consciousness: alert Memory: Intact Interaction: cooperative Results Result Diagrams: 10/01/17 17:37 10/01/17 17:37 Abnormal lab results 10/01/17 10/01/17 Range/Units 17:37 17:37 Hgb 11.4 L (11.8-15.2) gm/dl Hct 33.1 L (35.5-45.6) % RDW 17.3 H (13.2-15.2) % Seg Neuts % (Manual) 38.0 L (40.0-70.0) % Lymphocytes % (Manual) 49.0 H (13.4-35.0) % Monocytes % (Manual) 11.0 H (0.0-7.3) % Salicylates < 0.3 L (2.8-20.0) mg/dL All other labs normal. Assessment and Plan Assessment and plan: Assessment and plan: Impression: Hx of Schizophrenia. Patient was cooperative during the assessment , but was disorganized. He did report being compliant with his medications, namely risperidone and trazodone but was unable to write the exact doses. He stated he lives in an apartment alone. He did endorse having suicidal thoughts , and command auditory hallucinations which were telling him to hurt himself. DD: Schizoaffective DO Recommendation/Plan: Continue 1013 with possible placement to inpatient psy services. Restart risperidone 1 mg at bedtime and trazodone 50 mg at bedtime.
[2017-10-02] MEDS: DESYREL PO SCH (22:22)
[2017-10-02] MEDS: RisperDAL PO SCH (22:22)
[2017-10-03] MEDS: RisperDAL PO SCH (22:14)
[2017-10-03] MEDS: DESYREL PO SCH (22:15)
[2017-10-04 17:06] VITALS: BP 110/60
[2017-10-04] MEDS ORDERED: COGENTIN PO SCH (22:00)
[2017-10-04] MEDS ORDERED: RisperDAL PO SCH (22:00)
--- NOTE | 2017-10-06 01:22 | Progress Note ---
Subjective - Reason for Consult Consult date: 10/03/17 Reason for consult: Psychiatric Follow-up Evaluation - Chief Complaint Chief complaint: " I feel tense." Miguel is a 57 year old male who presents to the ER with auditory hallucinations and suicidal ideations without a plan. He has a hx of Schizophrenia. He reports that he lost his medication, which caused him to be noncompliant with medication. Today patient presents anxious and endorses psychosis. He states, " I hear voices telling me to kill myself. I am suicidal with a plan to jump over a bridge. However, I take Risperdal and Cogentin. When I take my medication I don't hear any voices." He denies VH and HI. Patient reports medication compliance without any side effects. Mental Status Exam - Vital signs Last Vital Signs Temp 98.7 F 10/04/17 17:04 Pulse 71 10/04/17 17:04 Resp 18 10/04/17 17:04 BP 110/60 10/04/17 17:04 Pulse Ox 97 10/04/17 17:04 - Exam Narrative exam: Mental Status Exam General Appearance: Casually dressed- hospital gown Attitude/Behavior: Cooperative Sensorium: Distracted Orientation: Alert and oriented x 3 (person, place, and time) Affect: Constricted Mood: Sad and anxious Thought Process: Disorganized with loose associations Thought Content: Paranoid Perceptions: Auditory hallucinations " Telling me to kill myself" Speech: Loud, Rapid Concentration: Impaired Memory: Intact Suicidal Ideation/Plan: +with plan to jump over a bridge Homicidal Ideation/Plan: Patient denies Judgement: Poor Insight: Poor Assessment and Plan Impression: Hx of Schizophrenia. Schizoaffective Disorder. Today, patient is cooperative, compliant, but anxious. He presents disorganized thought process. He endorses suicidal ideations with plan to jump over a bridge, paranoid thoughts, and auditory hallucinations telling him to kill himself. He reports that symptoms are well controlled with Risperdal and Cogentin. DDx: Schizoaffective Disorder Recommendation/Plan: 1. Continue 1013 with possible placement to inpatient psychiatric services. 2. Increase Risperidone 2mg po at bedtime. 3. Begin Cogentin 0.5mg po at bedtime.
== END 2017-10-04 17:04 | disposition other institution (70) ==
LOC: EEVIPCON 17:25 → ED 17:25
DX: F25.9 Schizoaffective disorder, unspecified (principal); F32.9 Major depressive disorder, single episode, unspecified; F17.200 Nicotine dependence, unspecified, uncomplicated; D57.1 Sickle-cell disease without crisis; J44.9 Chronic obstructive pulmonary disease, unspecified; Z79.899 Other long term (current) drug therapy
CPT/HCPCS: 36415; 80048; 80307; 81001; 85007; 85025; 99285; G0480; 80320

== ENCOUNTER 2017-10-26 22:42 | Emergency (ER) | payer MEDICAID ==
[2017-10-26 23:40] VITALS: BP 100/74
[2017-10-27 00:14] LABS: Hematocrit 29.6 % (35.5-45.6); Hemoglobin 9.6 gm/dl (11.8-15.2); Mean Corpuscular HGB Conc 32 % (32-34); Mean Corpuscular Hemoglobin 27 pg (28-32); Mean Corpuscular Volume 84 fl (84-94); Platelet Count 328 K/mm3 (140-440); Red Blood Count 3.53 M/mm3 (3.65-5.03); Red Cell Distribution Width 15.8 % (13.2-15.2)
[2017-10-27 00:19] LABS: Bilirubin,Urine NEG (Negative); Blood,Urine NEG (Negative); Color,Urine Yellow (Yellow); Protein,Urine <15 mg/dL mg/dL (Negative)
[2017-10-27 00:30] LABS: Alanine Aminotransferase 21 units/L (7-56); Albumin 3.1 g/dL (3.9-5); BUN/Creatinine Ratio 16; Blood Urea Nitrogen 13 mg/dL (9-20); Calcium 8.3 mg/dL (8.4-10.2); Hemolysis Index 1; Lipase 63 units/L (13-60)
[2017-10-27 05:09] LABS: Basophils % (Manual) 0 % (0.0-1.8); Total Cells Counted 100
[2017-10-27 05:10] LABS: Platelet Estimate Consistent w Auto
== END 2017-10-27 05:14 | disposition left against medical advice (07) ==
LOC: ED 22:42
DX: R10.9 Unspecified abdominal pain (principal); Z53.21 Procedure and treatment not carried out due to patient leaving prior to being seen by health care provider
CPT/HCPCS: 36415; 80053; 81001; 83690; 85007; 85025

== ENCOUNTER 2017-12-11 20:55 | Emergency (ER) | payer MEDICAID ==
[2017-12-11 23:39] LABS: Basophils % (Auto) 0.7 % (0.0-1.8); Eosinophils % (Auto) 0.7 % (0.0-4.3); Hematocrit 31.5 % (35.5-45.6); Hemoglobin 10.8 gm/dl (11.8-15.2); Lymphocytes # (Auto) 2.5 K/mm3 (1.2-5.4); Lymphocytes % (Auto) 37.7 % (13.4-35.0); Mean Corpuscular HGB Conc 34 % (32-34); Mean Corpuscular Hemoglobin 28 pg (28-32); Mean Corpuscular Volume 82 fl (84-94); Monocytes # (Auto) 0.8 K/mm3 (0.0-0.8); Monocytes % (Auto) 11.4 % (0.0-7.3); Platelet Count 297 K/mm3 (140-440); Red Blood Count 3.84 M/mm3 (3.65-5.03); Red Cell Distribution Width 15.4 % (13.2-15.2)
[2017-12-11 23:55] LABS: BUN/Creatinine Ratio 18; Blood Urea Nitrogen 16 mg/dL (9-20); Calcium 8.8 mg/dL (8.4-10.2); Hemolysis Index 3
[2017-12-12 00:35] LABS: Amorphous Crystals,Urine 1+; Bacteria,Urine 1+ /HPF (Negative); Bilirubin,Urine NEG (Negative); Blood,Urine NEG (Negative); Color,Urine Yellow (Yellow); Hyaline Casts,Urine 74 /LPF; Mucus,Urine 1+ /HPF; Protein,Urine <15 mg/dL mg/dL (Negative); Urobilinogen,Urine < 2.0 mg/dL (<2.0)
[2017-12-12 00:40] LABS: Amphetamine Screen,Urine PRESUMPTIVE NEGATIVE; Benzodiazepines Screen,Urine PRESUMPTIVE NEGATIVE; Cannabinoid Screen,Urine PRESUMPTIVE NEGATIVE; Cocaine Screen,Urine PRESUMPTIVE NEGATIVE; Methadone Screen,Urine PRESUMPTIVE NEGATIVE; Opiate Screen,Urine PRESUMPTIVE NEGATIVE
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
[2017-12-12] MEDS: DESYREL PO SCH ×2 (02:02→21:53)
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
[2017-12-12] MEDS ORDERED: COGENTIN PO SCH (22:00)
[2017-12-12] MEDS ORDERED: HALDOL PO SCH (22:00)
[2017-12-13 02:11] VITALS: BP 109/70
== END 2017-12-13 03:39 ==
LOC: ED 20:55
DX: F32.9 Major depressive disorder, single episode, unspecified (principal); F17.200 Nicotine dependence, unspecified, uncomplicated
CPT/HCPCS: 36415; 80048; 80307; 81001; 85025; 99285; G0480; 80320